=== PATIENT | female | born 1975 | race American Indian/Alaskan Native ===

== ENCOUNTER 2017-08-30 09:56 | Emergency (ER) | payer OTHER ==
[2017-08-30 10:43] VITALS: BP 114/57
[2017-08-30] MEDS ORDERED: MOTRIN PO ONE (10:44)
[2017-08-30] MEDS ORDERED: MOTRIN ONE (13:05)
--- NOTE | 2017-08-30 13:32 | Emergency Department Report ---
Blank Doc - Documentation Documentation: 41yo female with no significant past medical history came in complaining of left knee pain. Patient states that she is running after her dog and she twisted her left knee. Patient was ambulatory at scene. She denies any nausea vomiting chest which was of breath. Denies any fever or chills. Pt has good pulses. plan: x ray pain meds knee immobilizer
--- NOTE | 2017-08-30 13:45 | Emergency Department Report ---
ED Lower Extremity HPI - General Chief Complaint: Extremity Injury, Lower Stated Complaint: C/O OF FRACTURED KNEE Time Seen by Provider: 08/30/17 13:25 Source: patient Mode of arrival: Ambulatory Limitations: Physical Limitation - History of Present Illness Initial Comments: Pt twisted knee while falling after her dog started to ivonne a cat last night. Denies further complaints. Complaint: knee injury -: days(s) (1) Injury: Knee: Left Type of Injury: unknown Place: home Severity: moderate Severity scale (0 -10): 7 Improves With: immobilization Worsens With: weight bearing, movement Context: fall Associated Symptoms: snap/pop sensation, swelling, able to partially bear weight - Related Data Previous Rx's Medication Instructions Recorded Last Taken Type Naproxen [Naprosyn] 500 mg PO BID #20 tablet 08/30/17 Unknown Rx Allergies Allergy/AdvReac Type Severity Reaction Status Date / Time No Known Allergies Allergy Unverified 08/30/17 10:40 ED Review of Systems ROS: Stated complaint: C/O OF FRACTURED KNEE Other details as noted in HPI Comment: All other systems reviewed and negative Constitutional: denies: chills, fever Eyes: denies: eye pain, eye discharge, vision change ENT: denies: ear pain, throat pain Respiratory: denies: cough, shortness of breath, wheezing Cardiovascular: denies: chest pain, palpitations Endocrine: no symptoms reported Gastrointestinal: denies: abdominal pain, nausea, diarrhea Genitourinary: denies: urgency, dysuria, discharge Musculoskeletal: as per HPI, joint swelling, arthralgia. denies: back pain Skin: denies: rash, lesions Neurological: denies: headache, weakness, paresthesias Psychiatric: denies: anxiety, depression Hematological/Lymphatic: denies: easy bleeding, easy bruising ED Past Medical Hx - Past Medical History Previous Medical History?: No - Surgical History Past Surgical History?: Yes Hx Breast Surgery: Yes (LEFT BREAST TISSUE REMOVED) - Social History Smoking Status: Current Every Day Smoker Substance Use Type: None - Medications Home Medications: Home Medications Medication Instructions Recorded Confirmed Last Taken Type Naproxen [Naprosyn] 500 mg PO BID #20 tablet 08/30/17 Unknown Rx ED Physical Exam - General Limitations: Physical Limitation General appearance: alert, in no apparent distress - Head Head exam: Present: atraumatic, normocephalic - Eye Eye exam: Present: normal appearance, PERRL, EOMI - ENT ENT exam: Present: normal exam, mucous membranes moist - Neck Neck exam: Present: normal inspection - Respiratory Respiratory exam: Present: normal lung sounds bilaterally. Absent: respiratory distress - Cardiovascular Cardiovascular Exam: Present: regular rate, normal rhythm. Absent: systolic murmur, diastolic murmur, rubs, gallop - GI/Abdominal GI/Abdominal exam: Present: soft, normal bowel sounds - Extremities Exam Extremities exam: Present: normal inspection - Expanded Lower Extremity Exam Left Hip exam: Present: normal inspection, full ROM. Absent: tenderness, swelling Upper Leg exam: Present: normal inspection, full ROM. Absent: tenderness, swelling Knee exam: Present: tenderness, swelling. Absent: deformity Lower Leg exam: Present: normal inspection, full ROM. Absent: tenderness, swelling Ankle exam: Present: normal inspection, full ROM. Absent: tenderness, swelling Foot/Toe exam: Present: normal inspection, full ROM. Absent: tenderness, swelling Neuro vascular tendon exam: Present: no vascular compromise. Absent: motor deficit, sensory deficit - Back Exam Back exam: Present: normal inspection - Neurological Exam Neurological exam: Present: alert, oriented X3 - Psychiatric Psychiatric exam: Present: normal affect, normal mood - Skin Skin exam: Present: warm, dry, intact, normal color. Absent: rash ED Course Vital Signs 08/30/17 08/30/17 10:40 13:14 Temperature 98.7 F Pulse Rate 59 L Respiratory 18 18 Rate Blood Pressure 114/57 O2 Sat by Pulse 100 Oximetry - Reevaluation(s) Reevaluation #1: 08/30/17 13:42 Pt stable for d/c. ED Lower Extremity MDM - Radiology Data Radiology results: report reviewed naf - Medical Decision Making Pt presents with probable meniscus injury. XR normal, will place immobilizer and have her follow with ortho. - Differential Diagnosis sprain, fx Critical care attestation.: If time is entered above; I have spent that time in minutes in the direct care of this critically ill patient, excluding procedure time. ED Disposition Clinical Impression: Internal derangement of left knee Disposition: DC-01 TO HOME OR SELFCARE Is pt being admited?: No Condition: Good Instructions: Knee Sprain (ED) Prescriptions: Naproxen [Naprosyn] 500 mg PO BID #20 tablet Referrals: PRIMARY CARE, [Primary Care Provider] - 3-5 Days ADA PINEDA MD [Staff Physician] - 3-5 Days Time of Disposition: 14:36
--- NOTE | 2017-08-30 14:34 | XRay Report ---
LEFT KNEE RADIOGRAPHS INDICATION: Knee pain after twisting it. COMPARISON: None similar at this institution. FINDINGS: AP, oblique and crosstable lateral left knee radiographs demonstrate intact bony articulation and appearance. No suprapatellar effusion. CONCLUSION: No acute left knee radiographic abnormality. Thank you for the opportunity to participate in this patient's care.
== END 2017-08-30 14:45 | disposition home or self-care (01) ==
LOC: ED 09:56
DX: M23.92 Unspecified internal derangement of left knee (principal); F17.200 Nicotine dependence, unspecified, uncomplicated
CPT/HCPCS: 99283